=== PATIENT | female | born 1980 | race Caucasian/White ===

== ENCOUNTER 2018-04-27 11:21 | Outpatient (CLI) | payer OTHER ==
[~2018-04-27 11:21] MED LIST: ALDOMET500 MG PO; KETO10TA2 PO; PERCOCET 5/3251 TAB PO
== END 2018-04-27 11:30 | disposition home or self-care (01) ==
LOC: LAB 11:21
DX: D50.0 Iron deficiency anemia secondary to blood loss (chronic) (principal); N84.0 Polyp of corpus uteri; D50.8 Other iron deficiency anemias; D51.8 Other vitamin B12 deficiency anemias; I10 Essential (primary) hypertension; D55.0 Anemia due to glucose-6-phosphate dehydrogenase [G6PD] deficiency; D51.0 Vitamin B12 deficiency anemia due to intrinsic factor deficiency; E03.8 Other specified hypothyroidism; E06.3 Autoimmune thyroiditis; R97.0 Elevated carcinoembryonic antigen [CEA]; R97.8 Other abnormal tumor markers

== ENCOUNTER 2018-04-30 11:58 | Outpatient (CLI) | payer OTHER | END 2018-04-30 17:00 | disposition home or self-care (01) | LOC: SONOGRAMA 11:58 | DX: E04.1 Nontoxic single thyroid nodule (principal); D50.0 Iron deficiency anemia secondary to blood loss (chronic); N84.0 Polyp of corpus uteri; E03.8 Other specified hypothyroidism ==

== ENCOUNTER 2018-05-20 09:42 | Outpatient (CLI) | payer OTHER ==
[2018-05-25] MEDS ORDERED: MAXFE CAPLET1 EACH PO (14:20)
== END 2018-05-20 09:55 | disposition home or self-care (01) ==
LOC: SONOGRAMA 09:42
DX: N84.0 Polyp of corpus uteri (principal)

== ENCOUNTER 2018-05-29 06:47 | Day surgery (SDC) | payer OTHER ==
[~2018-05-29 06:47] MED LIST changes: +MAXFE CAPLET1 EACH PO
== END 2018-05-29 13:10 | disposition home or self-care (01) ==
LOC: CIR.AMB 06:47
DX: N84.0 Polyp of corpus uteri (principal)